=== PATIENT | female | born 1960 | race Caucasian/White ===

== ENCOUNTER 2017-04-17 22:24 | Observation (INO) | payer OTHER ==
--- NOTE | ~2017-04-17 | HP ---
History And Physical [place] [id number] [facility] [place]. [address] NAME: AGA WALKER : 60 STATUS : ADM Hector PAT#: [id number] AGE: 56 ADM/REG DATE : 04/17/17 MR#: [id number] REPORT SERV DATE: 04/18/17 DICTATED BY: ZOË MAY DATE: 04/18/17 REPORT STATUS : Draft TRANSCRIBED BY: MODL DATE: 04/18/17 DATE OF ADMISSION: 04/17/2017 CHIEF COMPLAINT: A 56-year-old female, presenting with syncope. HISTORY OF PRESENT ILLNESS: The patient states that she was in usual state of health when she took her nighttime medications around 1900 hours and then fell asleep on the couch. Later in the evening, she had lost memory of any of this, but she became extremely incoherent, irritable, and was yelling at the grand kids, and then tried to get up and passed out completely. She was lightheaded, confused, hit her head against the floor. She was passed out just for about a minute or so before she came to. No seizure activity. No loss of bowel or bladder continence. She has felt some shortness of breath recently, but she is a chronic smoker with a chronic mild smoker's cough that is unchanged. No chest pain. She admits that her psoriasis has been poorly controlled, and she has been lost to follow up (because the patient has skipped office visits) with Aga Vuong, her english composition instructor. She used to be on Enbrel for psoriasis and now has itching, uncomfortable psoriasis through most of her body. She admits to neck spasms since the fall up to a 10/10 severity that comes in waves. REVIEW OF SYSTEMS: Otherwise, a 14-point review of systems was obtained and was negative. PAST MEDICAL HISTORY: 1. Psoriasis diagnosed in 1997, previously on Enbrel, seen by Dr. Aga Vuong, english composition instructor. 2. Asthma/COPD. 3. Recurrent pneumonia. 4. Hiatal hernia. 5. Restless legs syndrome on Sinemet for that. 6. Migraine headaches. 7. Chronic back pain. 8. Neuropathy. 9. No cardiac disease. PAST SURGICAL HISTORY: 1. Hysterectomy. 2. Appendectomy when she was 15 years old. 3. Left breast biopsy. ALLERGIES: TO STEROIDS, CEFACLOR, EFFEXOR, AND ZOLOFT. History And Physical [address] [place]. [address] NAME: AGA WALKER : 60 STATUS : ADM Hector PAT#: [id number] AGE: 56 ADM/REG DATE : 04/17/17 MR#: [id number] REPORT SERV DATE: 04/18/17 DICTATED BY: ZOË MAY DATE: 04/18/17 REPORT STATUS : Draft TRANSCRIBED BY: LEBRON DATE: 04/18/17 SOCIAL HISTORY: The patient smokes cigarettes. Rare alcohol use. Lives in [place], [place]. She is . Her son is living with her. She has total of two children and five grandchildren. FAMILY HISTORY: Father with cancer. Grandfather with brain cancer. Mother healthy. Sister with cancer. Sister with heart disease as well. CURRENT MEDICATIONS: 1. Excedrin Extra Strength. 2. Carbidopa-levodopa three times a day. 3. Celexa 40 mg daily. 4. Neurontin 600 mg p.o. t.i.d. 5. Atarax p.r.n. 6. Mobic 15 mg p.o. daily. 7. Prilosec 40 mg p.o. daily. 8. Seroquel 100 mg p.o. q.h.s. 9. Requip 2 mg p.o. q.h.s. 10.Zocor 20 mg p.o. daily. 11.Imitrex. 12.Zanaflex. PHYSICAL EXAMINATION: VITAL SIGNS: Temperature 97.4, pulse 72, blood pressure 88/48, respiratory rate 20, and O2 saturation 99% on room air. GENERAL: A pleasant, cooperative female. She appears irritable and agitated. She almost has the appearance and behavior of someone who is either acutely intoxicated or maybe even withdrawing from some kind of drug. HEENT: Pupils equal, round, and reactive to light. No conjunctival pallor. No scleral icterus. Nares are patent. Oropharynx is clear of obstruction. Dry mucous membranes. NECK: Trachea midline. No thyromegaly. LYMPH: No cervical lymphadenopathy. No supraclavicular lymphadenopathy. RESPIRATORY: Clear to auscultation at bases. Minimal expiratory wheezes. No rhonchi. No rales. Nonlabored respiratory effort. CARDIOVASCULAR: Regular rate and rhythm. No murmurs, rubs, or gallops. No extremity edema is appreciated. ABDOMEN: Soft, nontender, and nondistended. Normal bowel sounds auscultated throughout. No hepatosplenomegaly. DERMATOLOGICAL: The patient has diffuse patchy breakout of psoriasis throughout all of her limbs, but it is affecting her elbows and knees in particular with actual abrasions from skin sloughing off. Otherwise, warm and dry extremities. No pallor. No cyanosis. PSYCHIATRIC: An animated affect. Irritable mood. Alert and oriented x3. LABORATORY DATA: White blood cell count 8.4, hemoglobin 11, hematocrit 33, and platelets 245. Sodium 139, potassium 3.6, chloride 106, bicarb 26, BUN 12, creatinine 0.81, and glucose 102. History And Physical [address] [address] NAME: RICH WALKERZABEKASSANDRA Vaughn : 60 STATUS : ADM Hector PAT#: [id number] AGE: 56 ADM/REG DATE : 04/17/17 MR#: [id number] REPORT SERV DATE: 04/18/17 DICTATED BY: ZOË MAY DATE: 04/18/17 REPORT STATUS : Draft TRANSCRIBED BY: LEBRON DATE: 04/18/17 Urinalysis negative for infection. Does show 6 hyaline casts. INR 1.1. Lactic acid 1.2. Urine drug screen negative. Troponin negative. STUDIES: 1. CT scan of the brain shows no acute intracranial process. 2. Chest x-ray was reported as negative. 3. EKG by my own evaluation shows sinus rhythm, no major abnormalities. ASSESSMENT AND PLAN: 1. Syncope with orthostasis possibly induced from nighttime medications. Place on IV fluids. 2. Polypharmacy. The patient denies any drug abuse, but she did take nighttime doses of Sinemet, Neurontin, Atarax, high-dose Seroquel 100 mg, Requip, and Zanaflex. 3. Psoriasis, poorly controlled. Follow as an outpatient with Dr. Aga Vuong. 4. Chronic obstructive pulmonary disease. Counseled tobacco abstinence. Place on DuoNeb nebulizers. KPL/MODL Zoë May M.D. / [id number] CC: Daisha Steele MD
[2017-04-18 00:06] LABS: BASOPHILS 0.2 %; BASOPHILS ABSOLUTE 0.02 10/3/uL (0.0-0.16); EOSINOPHILS 3.4 %; EOSINOPHILS ABSOLUTE 0.29 10/3/uL (0.0-0.53); IMMATURE GRANULOCYTES 0.1 %; IMMATURE GRANULOCYTES ABSOLUTE 0.01 10/3/uL (0.0-0.11); LYMPHOCYTES 23.6 %; LYMPHOCYTES ABSOLUTE 1.99 10/3/uL (0.67-4.30); MEAN CORPUS HGB CONC 33.6 g/dL (32.0-36.0); MEAN CORPUSCULAR HEMOGLOB 31.2 pg (26.0-34.0); MEAN CORPUSCULAR VOLUME 92.6 fL (80-100); MEAN PLATELET VOLUME 8.7 fL (9.2-13.0); MONOCYTES 6.2 %; MONOCYTES ABSOLUTE 0.52 10/3/uL (0.21-1.20); NEUTROPHILS 66.5 %; PLATELET COUNT 245 10/3/uL (150-400); RBC DISTRIBUTION WIDTH 14.9 % (12.0-16.0); WHITE BLOOD CELLS 8.4 10/3/uL (4.5-10.5)
[2017-04-18 00:07] LABS: ER CBC TAT 0 Hrs 08 MinsNP; HEMATOCRIT 32.7 % (36.0-48.0); MANUAL DIFF NO %; RED CELL COUNT 3.53 10/6/uL (4.0-5.6)
[2017-04-18 00:18] LABS: BUN (BLOOD UREA NITROGEN) 12 MG/DL (6-23); CHEST PAIN PROFILE TAT 0 Hrs 20 Mins; CHLORIDE, SERUM 106 MMOL/L (96-112); CREATININE 0.81 MG/DL (0.55-1.02); GFR AFRICAN AMERICAN 94 ML/MIN (>=60); GFR NON AFRICAN AMERICAN 81 ML/MIN (>=60); GLUCOSE, SERUM 102 MG/DL (60-99); SODIUM, SERUM 139 MMOL/L (135-148); TROPONIN I <0.02 NG/ML (<0.05)
[2017-04-18 00:19] LABS: INTERNATIONAL NORMAL RATI 1.1 UNITS (-); PARTIAL THROMBO TIME 28.8 SEC (22.5-37.2); PROTIME (NOT ORD) 13.6 SEC (12.0-14.5)
[2017-04-18 00:20] LABS: CO2 (CARBON DIOXIDE) 26 MMOL/L (24-34); POTASSIUM, SERUM 3.6 MMOL/L (3.5-5.3)
[2017-04-18 00:38] LABS: LACTATE 1.2 MMOL/L (0.3-2.4)
[2017-04-18 01:00] LABS: ASCORBIC ACID (UR NOT ORDER) NEG (NEG); BILIRUBIN, URINE NEGATIVE (NEG); ER URINALYSIS TAT 0 Hrs 00 Mins; KETONE, URINE TRACE MG/DL (NEG); LEUKOCYTE ESTERASE(NOT OR NEG (NEG); NITRITE (URINE) NEG (NEG); WBC (NOT ORDERED) (RFLEX) 1 (0-5)
[2017-04-18 01:19] LABS: AMPHETAMINES (NOT ORD) NEG (NEG); BARBITURATES (NOT ORDERED NEG (NEG); BENZODIAZEPINES (NOT ORD) NEG (NEG); CANNABINOIDS (THC) NEG (NEG); COCAINE (NOT ORDERED) NEG (NEG); OPIATES NEG (NEG); PHENCYCLIDINE(PCP) NEG (NEG); TRICYCLICS NEG (NEG)
[2017-04-18] MEDS ORDERED: IMITREX50 PO (01:38)
[2017-04-18] MEDS ORDERED: REQUIP2 PO (01:38)
[2017-04-18] MEDS ORDERED: SEROQUEL1C PO (01:39)
[2017-04-18] MEDS ORDERED: MOBIC15 MG PO (01:39)
[2017-04-18] MEDS ORDERED: ZANAFLEX 4 MG TA4 MG PO (01:39)
[2017-04-18] MEDS ORDERED: ATARAX50B PO (01:40)
[2017-04-18] MEDS ORDERED: NEUR300 PO (01:41)
[2017-04-18] MEDS ORDERED: PRILOSEC40 MG PO (01:41)
[2017-04-18] MEDS ORDERED: CELEXA40 MG PO (01:41)
[2017-04-18] MEDS ORDERED: SIN-CR PO (01:42)
[2017-04-18] MEDS ORDERED: ZOCOR20 PO (01:42)
[2017-04-18] MEDS ORDERED: EXCEDRIN EXTRA1 EACH PO (01:44)
[2017-04-18 02:03] LABS: PROCALCITONIN <0.05 ng/mL (<0.5)
== END 2017-04-18 05:20 | disposition left against medical advice (07) ==
LOC: ER 22:24 → 6NO 23:30
PROVIDERS: Emergency Medicine
DX: R55 Syncope and collapse (principal); L40.9 Psoriasis, unspecified; J44.9 Chronic obstructive pulmonary disease, unspecified; J45.909 Unspecified asthma, uncomplicated; J18.9 Pneumonia, unspecified organism; G25.81 Restless legs syndrome; G43.909 Migraine, unspecified, not intractable, without status migrainosus; G89.29 Other chronic pain; M54.9 Dorsalgia, unspecified; F17.210 Nicotine dependence, cigarettes, uncomplicated; G62.9 Polyneuropathy, unspecified; Z90.710 Acquired absence of both cervix and uterus; Z90.49 Acquired absence of other specified parts of digestive tract; Z98.890 Other specified postprocedural states; Z88.8 Allergy status to other drugs, medicaments and biological substances; Z82.49 Family history of ischemic heart disease and other diseases of the circulatory system; Z79.899 Other long term (current) drug therapy
CPT/HCPCS: 70450; 71010; 72125; 80048; 80305; 81001; 83605; 83735; 84145; 84484; 85025; 85610; 85730; 93005; 96374; 99285; A9270-GY; G0378; J2360